=== PATIENT | female | born 1980 | race Caucasian/White ===

== ENCOUNTER → 2019-11-02 | Outpatient (CLI) | payer BC | LOC: COL.RAD 07:12 | DX: M48.02 Spinal stenosis, cervical region (principal); M50.322 Other cervical disc degeneration at C5-C6 level; M50.20 Other cervical disc displacement, unspecified cervical region ==

== ENCOUNTER → 2021-07-12 | Outpatient (CLI) | payer BC | LOC: COL.RAD 04-25 07:30 | DX: M50.30 Other cervical disc degeneration, unspecified cervical region (principal); M48.02 Spinal stenosis, cervical region; M54.81 Occipital neuralgia | CPT/HCPCS: Q9967 ==